=== PATIENT | female | born 1950 | race Caucasian/White ===

== ENCOUNTER → 2020-09-13 | Day surgery (SDC) | payer MEDICARE, OTHER ==
[~2020-09-13] MED LIST: COLESTIPOL HCL1 G1 PO; COREG6.25 MG PO; COZAAR 25 MG TA25 M1 PO; FLEXERIL PO; GABAPENTIN600 M1 PO; LASIX 20 MG TAB20 MG PO; LEVO-T100 MCG PO; LOVASTATIN 20 M20 MG PO; OMEPRAZOLE 20 M20 M1 PO; SPIRONOLACTONE25 MG PO; VITAMIN D-40010 MCG PO
--- NOTE | ~2020-09-13 | PROC ---
[address] [place] [address] PROCEDURE REPORT Name: ELIZABETH GOLDEN Room: [facility].#: [id number] Admission: 09/13/20 Attend Phys: Tio Mejias DO Discharge: Date of : 48 Report #: [id number] THIS REPORT FOR: cc: Rox Beckford MD, Jennifer MD ~ [facility],Medical Records Staff For GI report, please see the Provation report in Perceptive 7 content. By: [id number] Records Staff [facility] /SASHA
[2020-09-13 07:59] LABS: HEMATOCRIT 37.7 % (37.0-47.0); HEMOGLOBIN 12.8 gm/dL (12.0-15.0); MCH 28.7 pg (26.0-34.0); MCHC 33.9 g/dL (28.0-37.0); MCV 84.6 fL (80.0-100.0); MPV 8.7 fl. (7.2-11.1); RBC 4.46 mil/uL (4.20-5.00); RDW-CV 13.7 % (10.5-14.5); WBC 5.3 thou/uL (4.0-11.0)
[2020-09-13 08:10] LABS: CALCIUM 9.7 mg/dL (8.5-10.1); POTASSIUM 3.4 mmol/L (3.5-5.1)
--- NOTE | 2020-09-22 13:08 | PATH ---
[address] [address] PATHOLOGY RPT PROCEDURE Name: RADHA GOLDEN Room: [facility]..#: [id number] Admission: 09/13/20 Date of : 48 Discharge: Report #: [id number] Path Case #: [id number] [facility] Accession Number: [id number] . 01 Material submitted: . PART A: colon - RANDOM COLON BIOPSIES PART B: colon - DESCENDING COLON POLYP. Modifiers: descending . 01 Clinical history: . DS/COLONOSCOPY . 02 Diagnosis: A. Large bowel, "random colon", endoscopic biopsy: - Large bowel mucosa without significant pathologic alteration. - Negative for features of microscopic colitis, active inflammation, crypt architectural distortion, granulomatous inflammation, dysplasia, and malignancy. . B. Large bowel, "descending colon polyp", endoscopic biopsy: - Hyperplastic polyp; negative for dysplasia and malignancy. . (REX:giorgio; 09/21/2020) QLM 09/22/2020 1103 Local . 02 Electronically signed: . Ortiz Jimenez MD, Pathologist NPI- [id number] . 01 Gross description: . A. The specimen is received in formalin, labeled "Radha Golden, random colon biopsies". Received are multiple segments of pale galvin tissue ranging in size from 0.2-0.5 cm in maximum dimensions. The specimen is submitted entirely in cassette A1. . B. The specimen is received in formalin, labeled "Radha Golden, descending colon polyp". Received are two segments of pale galvin tissue measuring 0.3 and 0.4 cm in maximum dimensions. The specimen is submitted entirely in cassette B1. (CAA; 09/17/2020) QAC/QAC 09/17/2020 1923 Local . 02 Pathologist provided ICD-10: K63.5, Z86.010 . 02 CPT . 749020, 106061 Specimen Comment: A courtesy copy of this report has been sent to [phone] Specimen Comment: [place] [address] PATHOLOGY RPT PROCEDURE Name: RADHA GOLDEN Room: [facility]#: [id number] Admission: 09/13/20 Date of : 48 Discharge: Report #: [id number] Path Case #: [id number] Performed at: 01 [facility] [address] [id number] MD Indra Bergman MD Phone: [phone] Performed at: 02 [facility] [address] [address] [id number] MD Ousmane Singh MD Phone: [phone]
== END | disposition home or self-care (01) ==
LOC: M.SUR 07:28
PROVIDERS: ATTEND Internal Medicine Gastroenterology
DX: R19.7 Diarrhea, unspecified (principal); K63.5 Polyp of colon; R15.9 Full incontinence of feces; K57.30 Diverticulosis of large intestine without perforation or abscess without bleeding; K62.89 Other specified diseases of anus and rectum; K64.4 Residual hemorrhoidal skin tags; I11.0 Hypertensive heart disease with heart failure; I50.9 Heart failure, unspecified; E03.9 Hypothyroidism, unspecified; K21.9 Gastro-esophageal reflux disease without esophagitis; M19.90 Unspecified osteoarthritis, unspecified site; M79.7 Fibromyalgia; Z98.890 Other specified postprocedural states; Z79.899 Other long term (current) drug therapy; Z90.49 Acquired absence of other specified parts of digestive tract; Z86.010 Personal history of colon polyps; Z88.8 Allergy status to other drugs, medicaments and biological substances